=== PATIENT | male | born 2000 | race Caucasian/White ===

== ENCOUNTER → 2018-02-27 | Outpatient (CLI) | payer OTHER | LOC: M RAD 09:56 | DX: R51 Headache (principal) | CPT/HCPCS: 70486 ==

== ENCOUNTER 2018-04-28 19:59 | Emergency (ER) | payer OTHER ==
[2018-04-28] MEDS: ONDANSETRON 4 MG ORAL DISINTEGRATING TAB (Q0162 PER 1MG) PO (22:22)
== END 2018-04-28 23:24 | disposition home or self-care (01) ==
LOC: M ED 19:59
DX: J06.9 Acute upper respiratory infection, unspecified (principal); R11.2 Nausea with vomiting, unspecified; Z79.899 Other long term (current) drug therapy
CPT/HCPCS: Q0162

== ENCOUNTER 2018-06-03 22:49 | Inpatient (IN) | payer OTHER ==
[2018-06-03 23:50] LABS: HEMATOCRIT 43.2 % (42.0-52.0); HEMOGLOBIN 15.3 g/dl (13.5-17.5); MEAN CORPUSCULAR HEMOGLOBIN 31.9 pg (27.0-33.0); MEAN CORPUSCULAR HGB CONC 35.4 g/dl (32.0-36.5); MEAN CORPUSCULAR VOLUME 90.2 fl (80.0-96.0); PLATELET COUNT, AUTOMATED 148 10^3/uL (150-450); RED BLOOD COUNT 4.79 10^6/uL (4.30-6.10); RED CELL DISTRIBUTION WIDTH 12.4 % (11.5-14.5); WHITE BLOOD COUNT 7.1 10^3/uL (4.0-10.0)
[2018-06-04 00:46] LABS: ALKALINE PHOSPHATASE 139 U/L (45-117); ALT/SGPT 34 U/L (12-78); ANION GAP 9 MEQ/L (8-16); AST/SGOT 29 U/L (7-37); BLOOD UREA NITROGEN 13 MG/DL (7-18); CALCIUM LEVEL 8.7 MG/DL (8.5-10.1); CARBON DIOXIDE LEVEL 24 MEQ/L (21-32); CHLORIDE LEVEL 107 MEQ/L (98-107); CREATININE FOR GFR 1.16 MG/DL (0.70-1.30); GLUCOSE, FASTING 76 MG/DL (70-100); POTASSIUM SERUM 3.7 MEQ/L (3.5-5.1); SODIUM LEVEL 140 MEQ/L (136-145)
[2018-06-04 00:47] LABS: ACETAMINOPHEN LEVEL < 2.0 UG/ML (10.0-30.0); ALBUMIN 4.1 GM/DL (3.2-5.2); ALBUMIN/GLOBULIN RATIO 1.46 (1.00-1.93); BILIRUBIN,DIRECT 0.1 MG/DL (0.0-0.2); BILIRUBIN,TOTAL 0.6 MG/DL (0.2-1.0); ETHYL ALCOHOL (ETHANOL) 0.003 % (0.000-0.010); SALICYLATE LEVEL < 1.7 MG/DL (5.0-30.0); TOTAL PROTEIN 6.9 GM/DL (6.4-8.2)
[2018-06-04 02:48] LABS: AMPHETAMINES LEVEL URINE NEGATIVE (NEGATIVE); BARBITURATES URINE NEGATIVE (NEGATIVE); BENZODIAZEPINES URINE NEGATIVE (NEGATIVE); CANNABINOIDS URINE NEGATIVE (NEGATIVE); COCAINE METABOLITE URINE NEGATIVE (NEGATIVE); METHADONE URINE NEGATIVE (NEGATIVE); OPIATES URINE NEGATIVE (NEGATIVE); PHENCYCLIDINE URINE NEGATIVE (NEGATIVE)
[2018-06-04] MEDS: NICOTINE 21MG/24HR 1 EA TRANSDERMAL TD (03:45)
[2018-06-04] MEDS ORDERED: MOM 30ML SUSPENSION UDC PO (14:00)
[2018-06-04] MEDS ORDERED: ACETAMINOPHEN TAB 650MG DOSE (2X325MG) PO (14:00)
[2018-06-04] MEDS ORDERED: MAALOX 30 ML SUSP *UDC PO (14:00)
[2018-06-05] MEDS: TOPIRAMATE (TopAMAX) 25 MG TAB PO (09:57)
[2018-06-05] MEDS: NICOTINE 21MG/24HR 1 EA TRANSDERMAL TD (14:00)
[2018-06-05] MEDS: traZODone 50 MG TAB PO (21:53)
[2018-06-06] MEDS: TOPIRAMATE (TopAMAX) 25 MG TAB PO (08:25)
[2018-06-06] MEDS: NICOTINE 21MG/24HR 1 EA TRANSDERMAL TD (08:26)
[2018-06-06] MEDS: OLANZapine ORAL DISINTEGRATING TAB 5MG PO (14:17)
[2018-06-07] MEDS: TOPIRAMATE (TopAMAX) 25 MG TAB PO (08:28)
[2018-06-07] MEDS: NICOTINE 21MG/24HR 1 EA TRANSDERMAL TD (08:28)
[2018-06-07] MEDS: OLANZapine ORAL DISINTEGRATING TAB 5MG PO (20:48)
[2018-06-07] MEDS: traZODone 50 MG TAB PO (20:48)
[2018-06-08] MEDS: TOPIRAMATE (TopAMAX) 25 MG TAB PO (08:24)
[2018-06-08] MEDS: NICOTINE 21MG/24HR 1 EA TRANSDERMAL TD (08:25)
[2018-06-08] MEDS: OLANZapine ORAL DISINTEGRATING TAB 5MG PO (17:48)
[2018-06-08] MEDS: traZODone 50 MG TAB PO (20:11)
[2018-06-09] MEDS: NICOTINE 21MG/24HR 1 EA TRANSDERMAL TD (08:02)
[2018-06-09] MEDS: TOPIRAMATE (TopAMAX) 25 MG TAB PO (08:02)
== END 2018-06-09 12:00 | disposition home or self-care (01) | DRG 885 ==
LOC: M ED 22:49 → M ED INP 06-04 13:49 → M PSY 06-04 16:04
DX: F39 Unspecified mood [affective] disorder (principal); Z62.811 Personal history of psychological abuse in childhood; G43.909 Migraine, unspecified, not intractable, without status migrainosus; F17.210 Nicotine dependence, cigarettes, uncomplicated; Z79.899 Other long term (current) drug therapy; Z81.8 Family history of other mental and behavioral disorders

== ENCOUNTER → 2018-09-30 | Outpatient (REF) | payer OTHER ==
[~2018-09-30] MED LIST: ARIP5TA PO; FLON1SPR NARES; RISP25INJ IM; TESS100C PO; TOPA1TAB PO; TOPA50TA8 PO; TRAZO50TA PO; ZOFR4TAB14 PO; ZOMI5SPR
[2018-09-30 18:00] LABS: BASO # 0.1 10^3/uL (0.0-0.2); BASO % 0.9 % (0.0-1.0); EOS # 0.1 10^3/uL (0.0-0.50); HEMATOCRIT 42.3 % (42.0-52.0); HEMOGLOBIN 15.5 g/dl (13.5-17.5); LYMPH # 2.1 10^3/uL (1.5-6.5); LYMPH % 38.2 % (24.0-44.0); MEAN CORPUSCULAR HGB CONC 36.6 g/dl (32.0-36.5); MEAN CORPUSCULAR VOLUME 87.4 fl (80.0-96.0); MONO # 0.3 10^3/uL (0.0-0.8); MONO % 4.8 % (0.0-5.0); NEUTROPHILS % 54.1 % (36.0-66.0); PLATELET COUNT, AUTOMATED 156 10^3/uL (150-450); RED BLOOD COUNT 4.84 10^6/uL (4.30-6.10); WHITE BLOOD COUNT 5.6 10^3/uL (4.0-10.0)
[2018-09-30 18:09] LABS: ALBUMIN 4.5 GM/DL (3.2-5.2); ALT/SGPT 25 U/L (12-78); BLOOD UREA NITROGEN 19 MG/DL (7-18); CALCIUM LEVEL 8.6 MG/DL (8.5-10.1); CARBON DIOXIDE LEVEL 26 MEQ/L (21-32); CHLORIDE LEVEL 106 MEQ/L (98-107); CREATININE FOR GFR 1.13 MG/DL (0.70-1.30); GLUCOSE, FASTING 121 MG/DL (70-100); POTASSIUM SERUM 3.7 MEQ/L (3.5-5.1); SODIUM LEVEL 142 MEQ/L (136-145); TOTAL PROTEIN 7.2 GM/DL (6.4-8.2); VALPROIC ACID (DEPAKOTE) < 3.0 UG/ML (50.0-100.0)
[2018-10-03 00:06] LABS: TOPIRAMATE LEVEL None Detected ug/mL (2.0-25.0)
== END ==
LOC: M LABNEURO 13:50
PROVIDERS: ATTEND Psychiatry & Neurology Neurology
DX: G43.911 Migraine, unspecified, intractable, with status migrainosus (principal)

== ENCOUNTER 2018-12-28 22:46 | Emergency (ER) | payer OTHER ==
[~2018-12-28] VITALS: Ht 180.3 cm; Wt 79.1 kg
[~2018-12-28 22:46] MED LIST changes: +ARIP1TAB6 PO; -ARIP5TA PO; +TRAZ1TAB10 PO; -TRAZO50TA PO
[2018-12-28] MEDS ORDERED: TOPA50TA8 PO (22:52)
[2018-12-29] MEDS ORDERED: PROA1AER2 INH ×2 (01:17→02:27)
[2018-12-29 01:25] VITALS: BP 120/57
--- NOTE | 2018-12-29 08:44 | REP ---
CHEST, TWO VIEWS: There is no evidence of acute infiltrate. No pleural effusion is seen. The heart is normal in size. The mediastinal silhouette is unremarkable. The visualized osseous structures are intact. IMPRESSION: No acute pulmonary disease. Unreviewed
== END 2018-12-29 01:26 | disposition home or self-care (01) ==
LOC: M ED 22:46
DX: J40 Bronchitis, not specified as acute or chronic (principal); F33.9 Major depressive disorder, recurrent, unspecified; F41.9 Anxiety disorder, unspecified; G43.909 Migraine, unspecified, not intractable, without status migrainosus; Z79.899 Other long term (current) drug therapy

== ENCOUNTER 2019-05-25 03:46 | Inpatient (IN) | payer OTHER ==
[~2019-05-25] VITALS: Ht 180.3 cm; Wt 76.7 kg
[~2019-05-25 03:46] MED LIST changes: +PROA1AER2 INH
[2019-05-25 04:37] LABS: HEMATOCRIT 47.1 % (42.0-52.0); HEMOGLOBIN 16.4 g/dl (13.5-17.5); MEAN CORPUSCULAR HEMOGLOBIN 32.2 pg (27.0-33.0); MEAN CORPUSCULAR HGB CONC 34.8 g/dl (32.0-36.5); MEAN CORPUSCULAR VOLUME 92.4 fl (80.0-96.0); PLATELET COUNT, AUTOMATED 131 10^3/uL (150-450); WHITE BLOOD COUNT 6.3 10^3/uL (4.0-10.0)
[2019-05-25 05:34] LABS: ACETAMINOPHEN LEVEL < 2.0 UG/ML (10.0-30.0); ALBUMIN 4.3 GM/DL (3.2-5.2); ALT/SGPT 20 U/L (12-78); BILIRUBIN,DIRECT 0.2 MG/DL (0.0-0.2); BILIRUBIN,TOTAL 0.7 MG/DL (0.2-1.0); BLOOD UREA NITROGEN 11 MG/DL (7-18); CALCIUM LEVEL 9.2 MG/DL (8.5-10.1); CARBON DIOXIDE LEVEL 28 MEQ/L (21-32); CHLORIDE LEVEL 106 MEQ/L (98-107); CREATININE FOR GFR 1.18 MG/DL (0.70-1.30); ETHYL ALCOHOL (ETHANOL) < 0.003 % (0.000-0.010); GLOMERULAR FILTRATION RATE > 60.0 (>60); GLUCOSE, FASTING 92 MG/DL (70-100); POTASSIUM SERUM 3.9 MEQ/L (3.5-5.1); SALICYLATE LEVEL 2.4 MG/DL (5.0-30.0); SODIUM LEVEL 141 MEQ/L (136-145); TOTAL PROTEIN 7.5 GM/DL (6.4-8.2)
[2019-05-25 05:43] LABS: AMPHETAMINES LEVEL URINE NEGATIVE (NEGATIVE); BARBITURATES URINE NEGATIVE (NEGATIVE); BENZODIAZEPINES URINE NEGATIVE (NEGATIVE); CANNABINOIDS URINE NEGATIVE (NEGATIVE); COCAINE METABOLITE URINE NEGATIVE (NEGATIVE); METHADONE URINE NEGATIVE (NEGATIVE); OPIATES URINE NEGATIVE (NEGATIVE); PHENCYCLIDINE URINE NEGATIVE (NEGATIVE)
[2019-05-25] MEDS ORDERED: MAALOX 30 ML SUSP *UDC PO PRN (06:45)
[2019-05-25] MEDS ORDERED: traZODone 50 MG TAB PO PRN (06:45)
[2019-05-25] MEDS ORDERED: ACETAMINOPHEN TAB 650MG DOSE (2X325MG) PO PRN (06:45)
[2019-05-25] MEDS ORDERED: MOM 30ML SUSPENSION UDC PO PRN (06:45)
[2019-05-25 07:40] VITALS: BP 127/59
[2019-05-25] MEDS: NICOTINE 21MG/24HR 1 EA TRANSDERMAL TD SCH (09:38)
--- NOTE | 2019-05-25 09:52 | HPEPDOC ---
General Date of Admission May 25, 2019 at 06:42 Date of Service: May 25, 2019 Attending Physician: BARBARA FARIAS MD Chief Complaint The patient is a 19-year-old male admitted with a reason for visit of Unspecified Depressive Disorder. 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 He reports that she brought him in after he put out a cigarette on his left palm and was pulling at his hair. He reports waxing and waning suicidal ideation over the last 2 weeks, depressed mood, feels "useless at my job and my life at home", poor PO and poor sleep, without any auditory or visual hallucinations and no prior suicide attempts of HI. He otherwise denies any recent illness with cold symptoms, headaches, palpitations, chest pain, fever, chills, weight loss, use of illicit drugs and only has occasional alcohol once a week. His lab evaluation shows grows normal labs with normal Cr, H/H, no leukocytosis, normal LFTs with slightly elevated alk phos and a negative tox screen. Home Medications No Active Prescriptions or Reported Meds Allergies Coded Allergies: No Known Allergies (Unverified , 04/28/18) Past Medical History Medical History TRUE not on CPAP History of migraines, none recently Depression previously on medication and psychotherapy, no treatment since 12/2018 Cigarette smoker Surgical History None Social History * Smoker: current smoker Alcohol: occationally Drugs: denies Recent Travel/Sick Contacts: Denies: Recent travel, Recent sick contacts Psychosocial History: Decreased mood, Depression, Suicidal thoughts Originally from [place]. 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 Describes some his prior pediatric experiences as traumatic. 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 Is having some challenges with the family of his current significant other A-FIB/CHADSVASC A-FIB History Current/History of A-Fib/PAF?: No Current PO Anticoag Therapy: No Age/Risk Factor Scoring CHADSVASC: CHADSVASC Response (Comments) Value Age Risk Factor Age < 65 years old 0 Gender Risk Factor Male 0 Hx of CHF No 0 Hx of HTN No 0 Hx of Stroke/TIA/or VTE No 0 Hx of Diabetes No 0 Hx of Vascular Disease No 0 Total 0 Treatment Treatment ordered: NONE Reason Anticoagulant not given: Not indicated/[id number] Review of Systems Constitutional: Denies: Chills, Fever, Night Sweats Eyes: Denies: Pain, Vision change ENT: Denies: Head Aches, Ear Pain, Dysphagia Skin: Denies: Rash, Lesions, Breakdown Pulmonary: Denies: Dyspnea, Cough Cardiovascular: Denies: Chest Pain, Palpitations, Orthopnea, Paroxysmal Noc. Dyspnea, Lt Headedness Gastrointestinal: Denies: Nausea, Vomiting, Abdominal Pain, Diarrhea Genitourinary: Denies: Dysuria, Frequency, Incontinence, Retention Hematologic: Denies: Bruising, Bleeding Excessively Endocrine: Denies: Polydipsia, Polyphagia, Polyuria, Heat Intolerance, Cold Intolerance, Other Endocrine Sx Musculoskeletal: Denies: Neck Pain, Back Pain, Joint Pain, Muscle Pain, Spasms Neurological: Denies: Weakness, Numbness, Change in speech, Confusion Psych: Reports: Depression, Thoughts of Self Harm Physical Examination General Exam: Positive: Alert, No Acute Distress Eye Exam: Positive: PERRLA, Conjunctiva & lids normal, EOMI; Negative: Sclera icteric ENT Exam: Positive: Atraumatic, Mucous membr. moist/pink, Pharynx Normal Neck Exam: Positive: Supple; Negative: JVD, thyromegaly Chest Exam: Positive: Clear to auscultation, Normal air movement Heart Exam: Positive: Rate Normal, Regular Rhythm, Normal S1, Normal S2; Negative: Murmurs, Rubs Telemetry: Positive: No significant arrhythmia Abdomen Exam: Positive: Normal bowel sounds, Soft; Negative: Tenderness, Hepatospenomegaly Extremity Exam: Positive: Normal pulses; Negative: Clubbing, Cyanosis, Edema Skin Exam: Positive: Nl turgor and temperature; Negative: Breakdown, Lesion Neuro Exam: Positive: Normal Gait, Normal Speech, Strength at 5/5 X4 ext, Normal Tone, Sensation Intact, Cranial Nerves 3-12 NL, Reflexes 2+ Psych Exam: Positive: Mental status NL, Memory Intact, Oriented x 3; Negative: Mood NL (Depressed mood, flat affect) Vital Signs Vital Signs Date Time Temp Pulse Resp B/P (MAP) Pulse Ox O2 Delivery O2 Flow Rate FiO2 05/25/19 07:40 98.8 52 16 127/59 (81) 100 Room Air Laboratory Data Labs 24H Laboratory Tests 2 05/25/19 04:23: Nucleated Red Blood Cells % (auto) 0.0, Anion Gap 7L, Glomerular Filtration Rate > 60.0, Calcium Level 9.2, Total Bilirubin 0.7, Direct Bilirubin 0.2, Aspartate Amino Transf (AST/SGOT) 16, Alanine Aminotransferase (ALT/SGPT) 20, Alkaline Phosphatase 134H, Total Protein 7.5, Albumin 4.3, Albumin/Globulin Ratio 1.34, Thyroid Stimulating Hormone (TSH) 1.650, Salicylates Level 2.4L, Acetaminophen Level < 2.0L, Ethyl Alcohol Level < 0.003 05/25/19 05:01: Urine Opiates Screen NEGATIVE, Urine Methadone Screen NEGATIVE, Urine Barbiturates Screen NEGATIVE, Urine Phencyclidine Screen NEGATIVE, Urine Amphetamines Screen NEGATIVE, Urine Benzodiazepines Screen NEGATIVE, Urine Cocaine Metabolite Screen NEGATIVE, Urine Cannabinoids Screen NEGATIVE CBC/BMP Laboratory Tests 05/25/19 04:23 Assessment/Plan 19 yo man with a history of depression with ongoing psychosocial stressors who presents with suicidal ideation with no clear plan with a recent history of self harm. At this time his medical evaluation shows normal labs and a benign physical examination and will therefore signoff and defer treatment to psychiatry. Plan: -Will order 21mg nicotine patch daily Plan / VTE VTE Prophylaxis Ordered?: No VTE Exclusion Mechanical Proph: Low Risk for VTE VTE Exclusion Pharmacological: At Low Risk for VTE BARBARA FARIAS MD May 25, 2019 09:52
[2019-05-25] MEDS ORDERED: ESCITALOPRAM OXALATE 10 MG TAB (LEXAPRO) PO ONE (10:30)
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
[2019-05-25 15:18] VITALS: BP 117/59
[2019-05-26 06:39] VITALS: BP 136/63
[2019-05-26] MEDS: NICOTINE 21MG/24HR 1 EA TRANSDERMAL TD SCH (08:46)
[2019-05-26] MEDS: ESCITALOPRAM OXALATE 10 MG TAB (LEXAPRO) PO SCH (08:46)
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
[2019-05-26] MEDS: hydrOXYzine 25 MG TAB PO PRN ×2 (14:23→20:51)
[2019-05-26 17:59] VITALS: BP 130/72
[2019-05-27 06:17] VITALS: BP 122/70
[2019-05-27] MEDS: NICOTINE 21MG/24HR 1 EA TRANSDERMAL TD SCH (08:37)
[2019-05-27] MEDS: hydrOXYzine 25 MG TAB PO PRN ×2 (08:37→16:57)
[2019-05-27] MEDS: ESCITALOPRAM OXALATE 10 MG TAB (LEXAPRO) PO SCH (08:37)
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
[2019-05-27 18:00] VITALS: BP 113/53
[2019-05-28 06:38] VITALS: BP 122/63
[2019-05-28] MEDS: ESCITALOPRAM OXALATE 10 MG TAB (LEXAPRO) PO SCH (08:34)
[2019-05-28] MEDS: NICOTINE 21MG/24HR 1 EA TRANSDERMAL TD SCH (08:34)
[2019-05-28] MEDS: hydrOXYzine 25 MG TAB PO PRN ×2 (08:36→16:00)
--- NOTE | 2019-05-28 10:26 | MHIPNPDOC ---
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 In ED pt stated he was going to attempt to hurt himself 05/23/19 but his girlfriend held him on the ground preventing him from doing anything and he asked her at that time no to bring him to ED for help. He stated in ED that he hurt himself last night by putting a cigarette out on his left hand and pulling his hair agreeing to come to ED for help with aid of his girlfriend. In ED he denied any work related stressors, he endorsed SI but denied any plans for SI, he is not in any current outpatient treatment with [facility]. Pt seen and states "there's a lot that's gone on in the past year" like him getting a divorce, a lot of ups and downs like going to [facility] and being tired a lot of medications (only on most for approx a month each) that didn't seem to help so stopped the meds and going to [facility], was doing fine until now b/c "everything started spiralling now." States he feels tired today b/c was in the ED all night last night. States he's been having poor sleep, insomnia lately. Endorses passive SI of "not wanting to really be here" but denies intent plan. States he was tired on zoloft, prozac in the past but not helpful even though exactly b/c only on them for short period but did endorse fatigue in the am when them and low motivation. States he had done well on abilify but when increased he started feeling more anxious and stopped it. Talked to pt about medications and agreeable to start lexapro for depression and anxiety and abilify at low dose to augment lexapro as has never been on combination before. Denies HI, hallucinations, delusions. Feels safe here. VITAL SIGNS: See below. NEW TEST RESULTS: see below CURRENT MEDICATIONS: See below. MENTAL STATUS EXAMINATION: General Appearance: unkempt, appears stated age, hospital scrubs/clothing Build: thin Demeanor: cooperative Eye Contact: fair-good Activity: average Behavior: cooperative Speech: clear, low in volume Mood: less depressed, anxious Mood "alright" Affect: improved range, congruent, anxious Thought Process: logical/linear, less depressed, intact Thought Content (Delusions): none reported, denies SI, HI, AVH (denies passive SI) Thought Content (Other): none reported Thought Content (Aggressive): none reported Perception (Hallucinations): none reported Perception (Other): none reported Cognition (Impairment of): none reported Cognition(Intelligence Est.): average Oriented: Awake, Alert, Oriented times three Insight: fair Judgment: Fair Psychosis: Denies DIAGNOSES: Major depressive d/o recurrent, severe, w/o psychosis ASSESSMENT:Pt seen and states that his mood is "alright" but continues to struggle with anxiety as states the vistaril he takes as need for anxiety only works for a short time then his anxiety returns. He is agreeable to increase vistaril for improved treatment of anxiety. States he's sleeping well at night w/o trazodone and is more motivated to do things during the day each day here. He is attending to groups daily and finds them helpful. States he's tolerating his lexapro and abilify and feels they're beneficial. He denies SI/HI, hallucinations, delusions. Pt feels safe here. MANAGEMENT PLAN: continue plan. d/c planning for Friday. Increase vistaril Medications: lexapro 20mg daily abilify 2.5mg qhs vistaril 50mg q6hr prn anxiety TIME SPENT: 30 minutes. Vital Signs Vital Signs Date Time Temp Pulse Resp B/P (MAP) Pulse Ox O2 Delivery O2 Flow Rate FiO2 05/28/19 06:38 97.3 64 12 122/63 (82) Room Air 05/25/19 07:40 100 Current Medications Current Medications Medications (Trade) Dose Ordered Sig/Celina Route PRN Reason Start Time Stop Time Status Last Admin Dose Admin Acetaminophen (Tylenol Tab) 650 mg Q6HP PRN PO HEADACHE or DISCOMFORT 05/25/19 06:45 Al Hydrox/Mg Hydrox/Simethicone (Mylanta) 30 ml Q4HP PRN PO HEARTBURN/INDIGESTION 05/25/19 06:45 Aripiprazole (AbiLIFY) 2.5 mg QHS PO 05/25/19 21:00 05/27/19 20:57 Escitalopram Oxalate (Lexapro) 10 mg DAILY PO 05/26/19 09:00 05/28/19 08:34 Home Med (Med Rec Complete!) ASDIRECTED XX 05/25/19 04:45 05/25/19 04:42 DC Hydroxyzine HCl (Atarax) 25 mg Q6HP PRN PO ANXIETY 05/26/19 13:45 05/28/19 08:36 Magnesium Hydroxide (Milk Of Magnesia) 30 ml DAILYPRN PRN PO CONSTIPATION 05/25/19 06:45 Nicotine (Nicoderm Cq 21mg) 1 patch DAILY TD 05/25/19 09:00 05/28/19 08:34 Trazodone HCl (Desyrel) 50 mg QHSP PRN PO INSOMNIA 05/25/19 06:45 Allergies Coded Allergies: No Known Allergies (Unverified , 04/28/18) BLU EATON DO May 28, 2019 10:25 am
[2019-05-28 16:41] VITALS: BP 119/64
[2019-05-28 18:00] VITALS: BP 119/64
[2019-05-29 07:31] VITALS: BP 130/62
[2019-05-29] MEDS: NICOTINE 21MG/24HR 1 EA TRANSDERMAL TD SCH (08:03)
[2019-05-29] MEDS: ESCITALOPRAM OXALATE 10 MG TAB (LEXAPRO) PO SCH (08:03)
[2019-05-29] MEDS: hydrOXYzine 25 MG TAB PO PRN ×2 (08:03→15:04)
--- NOTE | 2019-05-29 09:52 | MHIPNPDOC ---
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 He had suicidal thoughts and was admitted. Interval History The patient's met with today. He reports that he's making some progress, still has some depressive symptoms and loss of interest and fatigue. He has been engaging in groups, reports he's tolerating the medication well without any side effects. He reports that he's unsure about future, but feels more ready for the potential discharge on Friday as [facility] is closed on . He has had his girlfriend visit. He has had no major behavioral problems overnight. Review Of Systems General: Denies fever or appetite changes Cardiovascular: Denies Chest pain or palpations GI: Denies Nausea, vomiting, or bowel changes Respiratory: Denies shortness of breath or cough Neuro: Denies dizziness, tremors Derm: Denies any rashes or pruritus : Denies dysuria or urinary dysfunction MSK: Denies any muscle tightness or stiffness HEENT: Denies any vision changes or headaches Heme/Lymph: denies any bruising or bleeding Endo: denies any cold/heat intolerance or water intake changes Psychotherapy None on this visit. Vital Signs Reviewed. Mental Status Examination General: Well dressed with good hygiene Speech: Spontaneous and fluid Thought processes: Linear and logical MSK: Smooth and coordinated gait, no signs of tremors or involuntary orofacial movements Thought content: Future orientated Abstract reasoning, and computation: Intact Description of associations: Intact Description of abnormal or psychotic thoughts: Denies any suicidal or homicidal ideation. Denies any auditory or visual hallucinations. Does not appear to be responding to internal stimuli. Does not appear to be endorsing any bizarre or paranoid ideation. Judgment: fair Insight: fair Orientation: Alert and orientated 3 Cognition: Grossly normal Recent and remote memory: Intact Attention span and concentration: Intact Fund of knowledge: Adequate Mood: "okay" Affect: Mildly dysthymic Diagnoses Unspecified depressive disorder. Assessment and Plan Depressive disorder: Continue Lexapro. We'll increase hydroxyzine to 50 mg as patient reports this was planned yesterday. Disposition Continue inpatient admission. Safe discharge can be arranged on Friday once [facility] is reopened. Time Spent 15 minutes [id number]. Friday Vital Signs Vital Signs Date Time Temp Pulse Resp B/P (MAP) Pulse Ox O2 Delivery O2 Flow Rate FiO2 05/29/19 07:31 98.4 52 16 130/62 (84) 05/28/19 06:38 Room Air 05/25/19 07:40 100 Current Medications Current Medications Medications (Trade) Dose Ordered Sig/Celina Route PRN Reason Start Time Stop Time Status Last Admin Dose Admin Acetaminophen (Tylenol Tab) 650 mg Q6HP PRN PO HEADACHE or DISCOMFORT 05/25/19 06:45 Al Hydrox/Mg Hydrox/Simethicone (Mylanta) 30 ml Q4HP PRN PO HEARTBURN/INDIGESTION 05/25/19 06:45 Aripiprazole (AbiLIFY) 2.5 mg QHS PO 05/25/19 21:00 05/28/19 20:49 Escitalopram Oxalate (Lexapro) 10 mg DAILY PO 05/26/19 09:00 05/29/19 08:03 Home Med (Med Rec Complete!) ASDIRECTED XX 05/25/19 04:45 05/25/19 04:42 DC Hydroxyzine HCl (Atarax) 25 mg Q6HP PRN PO ANXIETY 05/26/19 13:45 05/29/19 08:03 Magnesium Hydroxide (Milk Of Magnesia) 30 ml DAILYPRN PRN PO CONSTIPATION 05/25/19 06:45 Nicotine (Nicoderm Cq 21mg) 1 patch DAILY TD 05/25/19 09:00 05/29/19 08:03 Trazodone HCl (Desyrel) 50 mg QHSP PRN PO INSOMNIA 05/25/19 06:45 Allergies Coded Allergies: No Known Allergies (Unverified , 04/28/18) WOO MAY DO May 29, 2019 09:52
[2019-05-29 18:00] VITALS: BP 125/63
[2019-05-30 06:24] VITALS: BP 121/58
[2019-05-30] MEDS: ESCITALOPRAM OXALATE 10 MG TAB (LEXAPRO) PO SCH (08:10)
[2019-05-30] MEDS: NICOTINE 21MG/24HR 1 EA TRANSDERMAL TD SCH (08:10)
[2019-05-30] MEDS: hydrOXYzine 25 MG TAB PO PRN ×2 (09:07→20:15)
[2019-05-30 15:21] VITALS: BP 137/61
[2019-05-31 06:28] VITALS: BP 116/64
[2019-05-31] MEDS: ESCITALOPRAM OXALATE 10 MG TAB (LEXAPRO) PO SCH (08:12)
[2019-05-31] MEDS: NICOTINE 21MG/24HR 1 EA TRANSDERMAL TD SCH (08:13)
--- NOTE | 2019-05-31 08:29 | MHIPNPDOC ---
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 In ED pt stated he was going to attempt to hurt himself 05/23/19 but his girlfriend held him on the ground preventing him from doing anything and he asked her at that time no to bring him to ED for help. He stated in ED that he hurt himself last night by putting a cigarette out on his left hand and pulling his hair agreeing to come to ED for help with aid of his girlfriend. In ED he denied any work related stressors, he endorsed SI but denied any plans for SI, he is not in any current outpatient treatment with [facility]. Pt seen and states "there's a lot that's gone on in the past year" like him getting a divorce, a lot of ups and downs like going to [facility] and being tired a lot of medications (only on most for approx a month each) that didn't seem to help so stopped the meds and going to [facility], was doing fine until now b/c "everything started spiralling now." States he feels tired today b/c was in the ED all night last night. States he's been having poor sleep, insomnia lately. Endorses passive SI of "not wanting to really be here" but denies intent plan. States he was tired on zoloft, prozac in the past but not helpful even though exactly b/c only on them for short period but did endorse fatigue in the am when them and low motivation. States he had done well on abilify but when increased he started feeling more anxious and stopped it. Talked to pt about medications and agreeable to start lexapro for depression and anxiety and abilify at low dose to augment lexapro as has never been on combination before. Denies HI, hallucinations, delusions. Feels safe here. VITAL SIGNS: See below. NEW TEST RESULTS: see below CURRENT MEDICATIONS: See below. MENTAL STATUS EXAMINATION: General Appearance: unkempt, appears stated age, hospital scrubs/clothing Build: thin Demeanor: cooperative Eye Contact: good Activity: average Behavior: cooperative Speech: clear, reg volume Mood: more euthymic and calm Mood "good" Affect: improved range, congruent, calm Thought Process: logical/linear, less depressed, intact Thought Content (Delusions): none reported, denies SI, HI, AVH (denies passive SI) Thought Content (Other): none reported Thought Content (Aggressive): none reported Perception (Hallucinations): none reported Perception (Other): none reported Cognition (Impairment of): none reported Cognition(Intelligence Est.): average Oriented: Awake, Alert, Oriented times three Insight: fair Judgment: Fair Psychosis: Denies DIAGNOSES: Major depressive d/o recurrent, severe, w/o psychosis ASSESSMENT:Pt seen and states that his mood is "good" today as he feels more calm and energetic with his current lexapro, abilify, and vistaril he's tolerating well and feels beneficial. Vistaril increased to 50mg over the weekend and states it's very beneficial for his occasional anxiety. States he's sleeping well at night w/o trazodone and is more motivated to do things during the day each day here still. He is attending to groups daily and finds them helpful. He denies SI/HI, hallucinations, delusions. Pt feels safe here. MANAGEMENT PLAN: continue plan. d/c planning for Friday. Medications: lexapro 20mg daily abilify 2.5mg qhs vistaril 50mg q6hr prn anxiety TIME SPENT: 30 minutes. Vital Signs Vital Signs Date Time Temp Pulse Resp B/P (MAP) Pulse Ox O2 Delivery O2 Flow Rate FiO2 05/31/19 06:28 98.2 75 16 116/64 (81) 05/28/19 06:38 Room Air 05/25/19 07:40 100 Current Medications Current Medications Medications (Trade) Dose Ordered Sig/Celina Route PRN Reason Start Time Stop Time Status Last Admin Dose Admin Acetaminophen (Tylenol Tab) 650 mg Q6HP PRN PO HEADACHE or DISCOMFORT 05/25/19 06:45 Al Hydrox/Mg Hydrox/Simethicone (Mylanta) 30 ml Q4HP PRN PO HEARTBURN/INDIGESTION 05/25/19 06:45 Aripiprazole (AbiLIFY) 2.5 mg QHS PO 05/25/19 21:00 05/30/19 20:14 Escitalopram Oxalate (Lexapro) 10 mg DAILY PO 05/26/19 09:00 05/29/19 10:15 DC 05/29/19 08:03 Escitalopram Oxalate (Lexapro) 15 mg DAILY PO 05/30/19 09:00 05/31/19 08:12 Home Med (Med Rec Complete!) ASDIRECTED XX 05/25/19 04:45 05/25/19 04:42 DC Hydroxyzine HCl (Atarax) 25 mg Q6HP PRN PO ANXIETY 05/26/19 13:45 05/29/19 10:15 DC 05/29/19 08:03 Hydroxyzine HCl (Atarax) 50 mg Q6HP PRN PO ANXIETY 05/29/19 10:15 05/30/19 20:15 Magnesium Hydroxide (Milk Of Magnesia) 30 ml DAILYPRN PRN PO CONSTIPATION 05/25/19 06:45 Nicotine (Nicoderm Cq 21mg) 1 patch DAILY TD 05/25/19 09:00 05/31/19 08:13 Trazodone HCl (Desyrel) 50 mg QHSP PRN PO INSOMNIA 05/25/19 06:45 Allergies Coded Allergies: No Known Allergies (Unverified , 04/28/18) BLU EATON DO May 31, 2019 8:29 am
[2019-05-31] MEDS: hydrOXYzine 25 MG TAB PO PRN ×2 (12:10→18:19)
[2019-05-31 18:34] VITALS: BP 136/74
[2019-06-01 06:19] VITALS: BP 110/51
[2019-06-01] MEDS: NICOTINE 21MG/24HR 1 EA TRANSDERMAL TD SCH (08:28)
[2019-06-01] MEDS: ESCITALOPRAM OXALATE 10 MG TAB (LEXAPRO) PO SCH (08:29)
[2019-06-01] MEDS ORDERED: TRAZ-252 PO (08:36)
[2019-06-01] MEDS ORDERED: LEXA1TAB2 PO (08:36)
[2019-06-01] MEDS ORDERED: ABIL1TAB11 PO (08:36)
[2019-06-01] MEDS ORDERED: HYDR-3363 PO (08:36)
--- NOTE | 2019-06-01 08:37 | MHDSPDOC ---
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 In ED pt stated he was going to attempt to hurt himself 05/23/19 but his girlfriend held him on the ground preventing him from doing anything and he asked her at that time no to bring him to ED for help. He stated in ED that he hurt himself last night by putting a cigarette out on his left hand and pulling his hair agreeing to come to ED for help with aid of his girlfriend. In ED he denied any work related stressors, he endorsed SI but denied any plans for SI, he is not in any current outpatient treatment with [facility]. Pt seen and states "there's a lot that's gone on in the past year" like him getting a divorce, a lot of ups and downs like going to [facility] and being tired a lot of medications (only on most for approx a month each) that didn't seem to help so stopped the meds and going to [facility], was doing fine until now b/c "everything started spiralling now." States he feels tired today b/c was in the ED all night last night. States he's been having poor sleep, insomnia lately. Endorses passive SI of "not wanting to really be here" but denies intent plan. States he was tired on zoloft, prozac in the past but not helpful even though exactly b/c only on them for short period but did endorse fatigue in the am when them and low motivation. States he had done well on abilify but when increased he started feeling more anxious and stopped it. Talked to pt about medications and agreeable to start lexapro for depression and anxiety and abilify at low do se to augment lexapro as has never been on combination before. Denies HI, hallucinations, delusions. Feels safe here. CONSULTANTS INVOLVED: none TREATMENT AND PROGRESS ON THE UNIT : [facility], seen for psychiatric assessment and started on lexapro increased to 20mg daily for mood and abilify 2.5mg qhs for antidepressant augmentation. He was provided vistaril 50mg q6hr prn anxiety and trazodone 50mg qhs prn insomnia. Pt found his medications beneficial and tolerated them well. He attended groups daily during his stay. His symptoms improved with treatment. On day of discharge he denied depression, anxiety, insomnia, SI/HI, hallucinations, delusions. He was discharged home after [facility] meeting with follow-up at [facility]. He felt safe for discharge. DISCHARGE ASSESSMENT: Pt seen and states that his mood is "good" and he's looking forward to going home today with his [place]. States he feels more calm and energetic with his current lexapro, abilify, and vistaril he's tolerating well and feels beneficial. States he's sleeping well at night w/o trazodone and is more motivated to do things during the day each day especially when he gets home. He is attending to groups daily and finds them helpful. He denies depression, anxiety, insomnia, SI/HI, hallucinations, delusions. Pt feels safe to d/c home with his [place]. MENTAL STATUS EXAMINATION ON DISCHARGE: General Appearance: clean, appears stated age, hospital scrubs/clothing Build: thin Demeanor: cooperative Eye Contact: good Activity: average Behavior: cooperative Speech: clear, reg volume Mood: euthymic and calm Mood "good" Affect: euthymic, congruent, calm Thought Process: logical/linear, intact Thought Content (Delusions): none reported, denies SI, HI, AVH (denies passive SI) Thought Content (Other): none reported Thought Content (Aggressive): none reported Perception (Hallucinations): none reported Perception (Other): none reported Cognition (Impairment of): none reported Cognition(Intelligence Est.): average Oriented: Awake, Alert, Oriented times three Insight: good Judgment: good Psychosis: Denies MEDICATIONS ON DISCHARGE: lexapro 20mg daily abilify 2.5mg qhs vistaril 50mg q6hr prn anxiety trazodone 50mg qhs prn insomnia PLAN/FOLLOWUP ARRANGEMENTS: D/c home with [facility] with follow-up at [facility]. The amount of time spent in the coordination of care for this patient was approximately 30 minutes. Vital Signs/I&Os Vital Signs Date Time Temp Pulse Resp B/P (MAP) Pulse Ox O2 Delivery O2 Flow Rate FiO2 06/01/19 06:19 97.8 56 12 110/51 (70) Room Air Medications No Active Prescriptions or Reported Meds Allergies Coded Allergies: No Known Allergies (Unverified , 04/28/18) BLU EATON DO Jun 01, 2019 8:37 am
== END 2019-06-01 13:35 | disposition home or self-care (01) | DRG 885 ==
LOC: M ED 03:46 → M ED INP 06:42 → M PSY 07:50
PROVIDERS: ADMIT Psychiatry & Neurology Psychiatry; ATTEND Psychiatry & Neurology Psychiatry
DX: F33.2 Major depressive disorder, recurrent severe without psychotic features (principal); Z62.811 Personal history of psychological abuse in childhood; Z63.5 Disruption of family by separation and divorce; G47.33 Obstructive sleep apnea (adult) (pediatric); F17.210 Nicotine dependence, cigarettes, uncomplicated

== ENCOUNTER 2019-09-20 21:44 | Emergency (ER) | payer OTHER ==
[~2019-09-20] VITALS: Ht 180.3 cm; Wt 79.8 kg
[~2019-09-20 21:44] MED LIST changes: +ABIL1TAB11 PO; +HYDR-3363 PO; +LEXA1TAB2 PO; +TRAZ-252 PO
[2019-09-20 22:59] LABS: INFLUENZA A AMPLIFICATION NEGATIVE (NEGATIVE); INFLUENZA B AMPLIFICATION NEGATIVE (NEGATIVE)
[2019-09-21] MEDS ORDERED: ONDANSETRON 4 MG ORAL DISINTEGRATING TAB (Q0162 PER 1MG) PO ONE (00:15)
[2019-09-21] MEDS ORDERED: ALBUTEROL SULFATE 2.5 MG/0.5 ML INH NEB SOLN NEB ONE (00:15)
[2019-09-21] MEDS ORDERED: NAPROXEN 250 MG TAB PO ONE (00:15)
[2019-09-21] MEDS ORDERED: BENZONATATE 100 MG CAP PO ONE (00:15)
[2019-09-21] MEDS ORDERED: ONDA4TAB6 PO (00:45)
[2019-09-21] MEDS ORDERED: PROAAER10 INH (00:45)
[2019-09-21] MEDS ORDERED: TESS100C PO (00:45)
[2019-09-21] MEDS ORDERED: MUCI1TAB18 PO (00:45)
[2019-09-21 00:57] VITALS: BP 103/49
--- NOTE | 2019-09-21 08:23 | REP ---
Chest x-ray: Two views. History: Cough and congestion . Comparison study: December 29, 2018 . Findings: The lungs are well inflated and free of infiltrate. The pleural angles are sharp. The heart size is normal. Pulmonary vasculature is not increased. No significant bony abnormality is seen. Impression: Negative chest x-ray. Electronically Signed by Matt Echeverria MD 09/21/2019 08:15 A
== END 2019-09-21 01:02 | disposition home or self-care (01) ==
LOC: M ED 21:44
DX: J06.9 Acute upper respiratory infection, unspecified (principal); G43.909 Migraine, unspecified, not intractable, without status migrainosus; F33.9 Major depressive disorder, recurrent, unspecified; F41.9 Anxiety disorder, unspecified; Z79.899 Other long term (current) drug therapy; F17.210 Nicotine dependence, cigarettes, uncomplicated
CPT/HCPCS: 71046; 87502; 94640; 99283; Q0162